=== PATIENT | female | born 1970 | race Caucasian/White ===

== ENCOUNTER → 2016-08-12 | Outpatient (CLI) | payer BC, OTHER ==
[~2016-08-12] MED LIST: ALPR-411 PO; AMPH10TA2 PO; AMPH25CA PO; CEPH500C2 PO; COLD MEDICINE PO; CYTM25 PO; ESCI10TA17 PO; HYDR-5688 PO; IBUP-1050 PO; LXP/20 PO; PHEN-775 PO; PRMVC INT UTER; RMCI IV; SULF800T23 PO
== END | disposition home or self-care (01) ==
LOC: C.LABSPEC 09:18
PROVIDERS: ATTEND Family Medicine
DX: L01.00 Impetigo, unspecified (principal)

== ENCOUNTER → 2016-09-06 | Outpatient (CLI) | payer BC, OTHER | END | disposition home or self-care (01) | LOC: C.LABSPEC 11:41 | PROVIDERS: ATTEND Family Medicine | DX: L30.9 Dermatitis, unspecified (principal) ==

== ENCOUNTER → 2016-11-07 | Outpatient (CLI) | payer BC, OTHER ==
[2016-11-07 09:43] LABS: BASO % 0.7 %; BASO ABS # 0.06 K/uL (0-0.2); COMPLETE YES; EOS % 1.3 %; HEMATOCRIT 41.8 % (37-47); IG% 0.1 %; LYMPH % 15.8 %; LYMPH ABS # 1.35 K/uL (1.2-3.4); MEAN CELL VOLUME 87.4 fL (80-100); MEAN CORPUSCULAR HEMOGLOBIN 29.1 pg (25-34); MEAN CORPUSCULAR HGB CONC 33.3 g/dl (32-36); NEUT % 72.1 %; PLATELET COUNT 368 K/uL (130-400); RED BLOOD COUNT 4.78 M/uL (4.2-5.4); WHITE BLOOD COUNT 8.54 K/uL (4.8-10.8)
== END | disposition home or self-care (01) ==
LOC: C.LAB1850 08:01
PROVIDERS: ATTEND Family Medicine
DX: R23.8 Other skin changes (principal)

== ENCOUNTER → 2016-12-17 | Outpatient (CLI) | payer BC, OTHER ==
--- NOTE | 2016-12-17 12:03 | DIAGNOSTIC IMAGING REPORT ---
LEFT FOOT MIN 3 VIEWS ROUTINE CLINICAL HISTORY: L03.116 Cellulitis of foot, leftPt with ongoing left foot pain s pain. Cellulitis. COMPARISON: None. DISCUSSION: The bones and joint spaces appear intact. There is no evidence of fracture, dislocation or bony disease. Mild soft tissue edema IMPRESSION: Mild soft tissue edema. No acute bony abnormality. The above report was generated using voice recognition software. It may contain grammatical, syntax or spelling errors. Electronically signed by: Justus García M.D. 12/17/2016 12:01 PM Dictated Date/Time: 12/17/2016 12:01 PM
[2016-12-17 13:27] LABS: BASO % 0.6 %; BASO ABS # 0.04 K/uL (0-0.2); COMPLETE YES; EOS % 0.8 %; HEMATOCRIT 40.1 % (37-47); IG% 0.2 %; LYMPH % 20.9 %; LYMPH ABS # 1.29 K/uL (1.2-3.4); MEAN CELL VOLUME 88.5 fL (80-100); MEAN CORPUSCULAR HEMOGLOBIN 29.4 pg (25-34); MEAN CORPUSCULAR HGB CONC 33.2 g/dl (32-36); MONO % 9.7 %; NEUT % 67.8 %; PLATELET COUNT 313 K/uL (130-400); RED BLOOD COUNT 4.53 M/uL (4.2-5.4); WHITE BLOOD COUNT 6.16 K/uL (4.8-10.8)
== END | disposition home or self-care (01) ==
LOC: C.RAD1850 11:46
PROVIDERS: ATTEND Family Medicine
DX: L03.116 Cellulitis of left lower limb (principal)

== ENCOUNTER 2017-01-22 14:47 | Emergency (ER) | payer BC, OTHER ==
[~2017-01-22] VITALS: Ht 162.6 cm; Wt 59.6 kg
[~2017-01-22 14:47] MED LIST changes: -AMPH25CA PO; -CEPH500C2 PO; -COLD MEDICINE PO; -CYTM25 PO; -ESCI10TA17 PO; -HYDR-5688 PO; -IBUP-1050 PO; -LXP/20 PO; -PHEN-775 PO; -PRMVC INT UTER; -SULF800T23 PO
[2017-01-22 14:51] VITALS: TEMP 36.8; Ht 162.6 cm; Wt 59.6 kg
[2017-01-22] MEDS ORDERED: SODIUM CHLORIDE 0.9% 1000ML 1,000 ML IV STA (15:14)
[2017-01-22] MEDS ORDERED: LXP/20 PO (15:30)
[2017-01-22] MEDS ORDERED: CYTM25 PO (15:30)
[2017-01-22] MEDS ORDERED: AMPH25CA PO (15:30)
[2017-01-22] MEDS ORDERED: OPTIRAY 320 IV PRN (15:30)
[2017-01-22] MEDS ORDERED: PRMVC INT UTER (15:30)
[2017-01-22 15:54] LABS: URINE APPEARANCE CLEAR (CLEAR); URINE BILIRUBIN NEG (NEG); URINE COLOR YELLOW; URINE NITRITE NEG (NEG); URINE PH 7.5 (4.5-7.5); URINE SPECIFIC GRAVITY 1.011 (1.000-1.030); UROBILINOGEN NEG (NEG); ZZUR CULT IF INDIC CLEAN CATCH NO
[2017-01-22 15:59] LABS: MANUAL MICROSCOPIC REQUIRED? NO; REVIEW REQ? YES
[2017-01-22 16:31] LABS: BASO % 0.6 %; BASO ABS # 0.05 K/uL (0-0.2); COMPLETE YES; EOS % 0.7 %; HEMATOCRIT 40.5 % (37-47); IG% 0.2 %; LYMPH % 17.7 %; LYMPH ABS # 1.54 K/uL (1.2-3.4); MEAN CELL VOLUME 89.2 fL (80-100); MEAN CORPUSCULAR HEMOGLOBIN 28.2 pg (25-34); MEAN CORPUSCULAR HGB CONC 31.6 g/dl (32-36); MEAN PLATELET VOLUME 9.5 fL (7.4-10.4); MONO % 7.3 %; NEUT % 73.5 %; PLATELET COUNT 278 K/uL (130-400); RED BLOOD COUNT 4.54 M/uL (4.2-5.4); WHITE BLOOD COUNT 8.68 K/uL (4.8-10.8)
[2017-01-22 16:34] LABS: ISTAT CREATININE 0.8 mg/dl (0.6-1.3); ISTAT HEMOGLOBIN 12.9 g/dl (12.0-16.0); ISTAT IONIZED CALCIUM 1.23 mmol/l (1.12-1.32)
--- NOTE | 2017-01-22 16:46 | DIAGNOSTIC IMAGING REPORT ---
CT SCAN OF THE ABDOMEN AND PELVIS WITH IV CONTRAST CLINICAL HISTORY: Left lower quadrant abdominal pain. COMPARISON STUDY: Abdominal ultrasound dated 01/14/2007. TECHNIQUE: Following the IV administration of 92 cc of Optiray 320, CT scan of the abdomen and pelvis is performed from the lung bases to the proximal femora. Images are reviewed in the axial, sagittal, and coronal planes. IV contrast was administered without complication. Automated dose control exposure was utilized. A dose lowering technique was utilized adhering to the principles of ALARA. CT DOSE: 267.29 mGy.cm FINDINGS: Lung bases: The heart is normal in size and without pericardial effusion. The lung bases are clear. Liver: The contrast-enhanced liver is normal in size, contour, and attenuation. There is no intrahepatic biliary ductal dilatation. The hepatic veins and portal veins are patent. Gallbladder: Surgically absent noting clips in the gallbladder fossa. Spleen: Normal in size and attenuation. Pancreas: Unremarkable. Adrenal glands: Unremarkable. Kidneys: The contrast enhanced kidneys are normal in size and without hydronephrosis. The kidneys enhance symmetrically. Scattered subcentimeter cortical hypodensities likely represent cysts but are too small for definitive characterization. Abdominal vasculature: The abdominal aorta is normal in course and caliber. Bowel: There is moderate constipation. No bowel obstruction is seen. The appendix is not identified and reported surgically absent. Peritoneum: There is no intraperitoneal free air or abdominal ascites. Lymphadenopathy: None. Pelvic viscera: The bladder wall is thickened and hyperemic. Mild pericystic inflammation is noted in the appearance suggests cystitis. The uterus is surgically absent. No adnexal lesion is seen. Skeletal structures: No lytic or blastic lesions are seen. IMPRESSION: 1. Findings suggest cystitis. Correlation with clinical findings and urinalysis will be required. 2. Moderate constipation. 3. Status post cholecystectomy, hysterectomy, and appendectomy. Electronically signed by: Greyson Hernandes M.D. 01/22/2017 4:45 PM Dictated Date/Time: 01/22/2017 4:41 PM
[2017-01-22 16:50] LABS: BUN/CREATININE RATIO 28.4 (10-20); CALCIUM 9.2 mg/dl (8.5-10.1); CREATININE 0.72 mg/dl (0.60-1.20); POTASSIUM 3.5 mmol/L (3.5-5.1)
[2017-01-22] MEDS ORDERED: SULFAMETHOXAZOLE/TRIMETHOPRIM DS 800/160MG TAB PO STA (16:52)
[2017-01-22] MEDS ORDERED: ACETAMINOPHEN 500 MG TAB PO STA (16:53)
[2017-01-22] MEDS ORDERED: SULF800T23 PO (16:58)
[2017-01-22 17:00] VITALS: BP 124/81; PULSE 69; O2SAT 97
--- NOTE | 2017-01-22 17:26 | EMERGENCY ROOM VISIT NOTE ---
History Report prepared by Madan: Indira Peacock Under the Supervision of: Dr. Te Ryan D.O. First contact with patient: 15:03 Chief Complaint: HEMATURIA Stated Complaint: BLOOD IN URINE, PAIN, DIZZY History of Present Illness The patient is a 46 year old female who presents to the Emergency Room with complaints of intermittent hematuria beginning this morning. The patient states that she woke up at 4am to go to the bathroom. When she urinated she has some discomfort but did not notice if there was any blood. She went back to sleep and when she woke up again she was experiencing hematuria. She states that she has been passing blood with a large amount of clots. She has been wearing a pad all day because of the bleeding. The patient also reports cramping lower abdominal pain that she rates as a 5/10 in severity. She denies any modifying factors. She has had UTIs and kidney stones in the past and states that these current symptoms feel different. She has a history of endometriosis and states that this pain feels very similar. She has had endometriosis in her bladder before. The patient has had a complete hysterectomy. She is supposed to be getting Remicade treatments for her endometriosis but has not had any for eight months. She denies hematochezia, melena, and vaginal bleeding. She does not take any blood thinners. Source of History: patient Onset: this morning Position: other (bladder) Symptom Intensity: 4/10 Quality: other (hematuria) Timing: intermittent Modifying Factors (Worsening): urination Associated Symptoms: + abdominal pain, No melena, No hematochezia Note: Pt denies vaginal bleeding. Review of Systems See HPI for pertinent positives & negatives. A total of 10 systems reviewed and were otherwise negative. Past Medical & Surgical Medical Problems: (1) Encounter for removal of sutures (2) Hx of cholecystectomy (3) Hysterectomy (4) Insertion of implantable venous access port (5) Port catheter in place (6) Wrist laceration Surgical Problems: (1) History of appendectomy Family History Diabetes mellitus FH: cancer FH: gallbladder disease FH: lung disease Kidney disease Kidney stones Social History Smoking Status: Never Smoker Alcohol Use: none Drug Use: none Housing Status: lives with family Occupation Status: employed Current/Historical Medications Scheduled Amphetamine-Dextroamphetamine 25MG (Adderall Xr 25MG), 25 MG PO DAILY Escitalopram Oxalate (Escitalopram Oxalate), 20 MG PO DAILY Estrogens, Conjugated (Premarin), INT UTER UD Infliximab (Remicade), 1 DOSE IV q 7 weeks Liothyronine Sodium (Liothyronine Sodium), 12.5 MG PO DAILY Sulfamethoxazole-Trimethoprim (Bactrim Ds 800MG/160MG), 1 TAB PO BID Scheduled PRN Alprazolam (Xanax), 0.5 MG PO DAILY PRN for anxiety Allergies Coded Allergies: No Known Allergies (Unverified , 01/14/07) Physical Exam Vital Signs Date Time Temp Pulse Resp B/P (MAP) Pulse Ox O2 Delivery O2 Flow Rate FiO2 01/22/17 17:00 69 16 124/81 97 Room Air 01/22/17 16:28 74 16 114/73 98 Room Air 01/22/17 14:51 36.8 92 20 115/79 97 Room Air Physical Exam GENERAL: alert, sitting up in bed, tearful, disheveled appearing, well nourished , no distress, non-toxic EYE EXAM: normal conjunctiva OROPHARYNX: no exudate, no erythema, lips, buccal mucosa, and tongue normal and mucous membranes are moist NECK: supple, no nuchal rigidity, no adenopathy, non-tender LUNGS: Clear to auscultation. Normal chest wall mechanics HEART: no murmurs, S1 normal and S2 normal ABDOMEN: abdomen soft, non-tender, normo-active bowel sounds, no masses, no rebound or guarding. : Normal external genitalia, normal vaginal mucosa, no obvious lesions or bleeding, no pain. BACK: Back is symmetrical on inspection and there is no deformity, no midline tenderness, no CVA tenderness. SKIN: no rashes and no bruising UPPER EXTREMITIES: upper extremities are grossly normal. LOWER EXTREMITIES: No pitting edema. NEURO EXAM: Normal sensorium, cranial nerves II-XII grossly intact, normal speech, no gross weakness of arms, no gross weakness of legs. Medical Decision & Procedures ER Provider Diagnostic Interpretation: Radiology results as stated below per my review and the radiologist's interpretation: CT SCAN OF THE ABDOMEN AND PELVIS WITH IV CONTRAST CLINICAL HISTORY: Left lower quadrant abdominal pain. COMPARISON STUDY: Abdominal ultrasound dated 01/14/2007. TECHNIQUE: Following the IV administration of 92 cc of Optiray 320, CT scan of the abdomen and pelvis is performed from the lung bases to the proximal femora. Images are reviewed in the axial, sagittal, and coronal planes. IV contrast was administered without complication. Automated dose control exposure was utilized. A dose lowering technique was utilized adhering to the principles of ALARA. CT DOSE: 267.29 mGy.cm FINDINGS: Lung bases: The heart is normal in size and without pericardial effusion. The lung bases are clear. Liver: The contrast-enhanced liver is normal in size, contour, and attenuation. There is no intrahepatic biliary ductal dilatation. The hepatic veins and portal veins are patent. Gallbladder: Surgically absent noting clips in the gallbladder fossa. Spleen: Normal in size and attenuation. Pancreas: Unremarkable. Adrenal glands: Unremarkable. Kidneys: The contrast enhanced kidneys are normal in size and without hydronephrosis. The kidneys enhance symmetrically. Scattered subcentimeter cortical hypodensities likely represent cysts but are too small for definitive characterization. Abdominal vasculature: The abdominal aorta is normal in course and caliber. Bowel: There is moderate constipation. No bowel obstruction is seen. The appendix is not identified and reported surgically absent. Peritoneum: There is no intraperitoneal free air or abdominal ascites. Lymphadenopathy: None. Pelvic viscera: The bladder wall is thickened and hyperemic. Mild pericystic inflammation is noted in the appearance suggests cystitis. The uterus is surgically absent. No adnexal lesion is seen. Skeletal structures: No lytic or blastic lesions are seen. IMPRESSION: 1. Findings suggest cystitis. Correlation with clinical findings and urinalysis will be required. 2. Moderate constipation. 3. Status post cholecystectomy, hysterectomy, and appendectomy. Electronically signed by: Greyson Hernandes M.D. 01/22/2017 4:45 PM Dictated Date/Time: 01/22/2017 4:41 PM Laboratory Results 01/22/17 16:15 Red Blood Count 4.54, Mean Corpuscular Volume 89.2, Mean Corpuscular Hemoglobin 28.2, Mean Corpuscular Hemoglobin Concent 31.6, Mean Platelet Volume 9.5, Neutrophils (%) (Auto) 73.5, Lymphocytes (%) (Auto) 17.7, Monocytes (%) (Auto) 7.3, Eosinophils (%) (Auto) 0.7, Basophils (%) (Auto) 0.6, Neutrophils # (Auto) 6.38, Lymphocytes # (Auto) 1.54, Monocytes # (Auto) 0.63, Eosinophils # (Auto) 0.06, Basophils # (Auto) 0.05 01/22/17 16:15 Test 01/22/17 15:21 01/22/17 16:15 01/22/17 16:22 Urine Color YELLOW Urine Appearance CLEAR (CLEAR) Urine pH 7.5 (4.5-7.5) Urine Specific [place] 1.011 (1.000-1.030) Urine Protein NEG (NEG) Urine Glucose (UA) NEG (NEG) Urine Ketones NEG (NEG) Urine Occult Blood 2+ (NEG) Urine Nitrite NEG (NEG) Urine Bilirubin NEG (NEG) Urine Urobilinogen NEG (NEG) Urine Leukocyte Esterase SMALL (NEG) Urine WBC (Auto) 5-10 /hpf (0-5) Urine RBC (Auto) 10-30 /hpf (0-4) Urine Hyaline Casts (Auto) 0 /lpf (0-5) Urine Epithelial Cells (Auto) 10-20 /lpf (0-5) Urine Bacteria (Auto) NEG (NEG) Urine Test NEG (NEG) White Blood Count 8.68 K/uL (4.8-10.8) Red Blood Count 4.54 M/uL (4.2-5.4) Hemoglobin 12.8 g/dL (12.0-16.0) Hematocrit 40.5 % (37-47) Mean Corpuscular Volume 89.2 fL (80-100) Mean Corpuscular Hemoglobin 28.2 pg (25-34) Mean Corpuscular Hemoglobin Concent 31.6 g/dl (32-36) Platelet Count 278 K/uL (130-400) Mean Platelet Volume 9.5 fL (7.4-10.4) Neutrophils (%) (Auto) 73.5 % Lymphocytes (%) (Auto) 17.7 % Monocytes (%) (Auto) 7.3 % Eosinophils (%) (Auto) 0.7 % Basophils (%) (Auto) 0.6 % Neutrophils # (Auto) 6.38 K/uL (1.4-6.5) Lymphocytes # (Auto) 1.54 K/uL (1.2-3.4) Monocytes # (Auto) 0.63 K/uL (0.11-0.59) Eosinophils # (Auto) 0.06 K/uL (0-0.5) Basophils # (Auto) 0.05 K/uL (0-0.2) RDW Standard Deviation 45.4 fL (36.4-46.3) RDW Coefficient of Variation 13.8 % (11.5-14.5) Immature Granulocyte % (Auto) 0.2 % Immature Granulocyte # (Auto) 0.02 K/uL (0.00-0.02) Est Creatinine Clear Calc Drug Dose 85.3 ml/min Estimated GFR () 117.2 Estimated GFR (Non- 101.1 BUN/Creatinine Ratio 28.4 (10-20) Calcium Level 9.2 mg/dl (8.5-10.1) Total Bilirubin 0.5 mg/dl (0.2-1) Direct Bilirubin 0.1 mg/dl (0-0.2) Aspartate Amino Transf (AST/SGOT) 15 U/L (15-37) Alanine Aminotransferase (ALT/SGPT) 22 U/L (12-78) Alkaline Phosphatase 58 U/L (45-117) Total Protein 6.9 gm/dl (6.4-8.2) Albumin 3.5 gm/dl (3.4-5.0) Lipase 96 U/L (73-393) Bedside Hemoglobin 12.9 g/dl (12.0-16.0) Bedside Hematocrit 38 % (37-47) Bedside Sodium 140 mEq/L (135-144) Bedside Potassium 3.5 mEq/L (3.3-5.0) Bedside Chloride 103 mEq/L (101-112) Bedside Total CO2 27 mEq/l (24-31) Anion Gap 15.0 mmol/L (16-25) Bedside Blood Urea Nitrogen 21 mg/dl (7-18) Bedside Creatinine 0.8 mg/dl (0.6-1.3) Bedside Glucose (other) 81 mg/dl (70-99) Bedside Ionized Calcium ([place]) 1.23 mmol/l (1.12-1.32) Laboratory results per my review. Medications Administered Medications (Trade) Dose Ordered Sig/[place] Route Start Time Stop Time Status Last Admin Dose Admin Sodium Chloride 1,000 ml @ 999 mls/hr Q1H1M STAT IV 01/22/17 15:14 01/22/17 16:14 DC 01/22/17 16:27 999 MLS/HR Trimethoprim/ Sulfamethoxazole (Septra Ds 800/ 160MG Tab) 1 tab NOW STAT PO 01/22/17 16:52 01/22/17 16:54 DC 01/22/17 17:00 1 TAB Acetaminophen (Tylenol Tab) 1,000 mg NOW STAT PO 01/22/17 16:53 01/22/17 16:54 DC 01/22/17 17:00 1,000 MG Heparin Sodium (Porcine) (Heparin 100 Unit/ml 5ml Flush) 5 ml STK-MED ONCE .ROUTE 01/22/17 17:04 01/22/17 17:05 DC 01/22/17 17:12 5 ML ED Course ED COURSE: Vital signs were reviewed and showed normal vitals. The patients medical record was reviewed The above diagnostic studies were performed and reviewed. ED treatments and interventions as stated above. 1505: The patient was evaluated in room C12B. A complete history and physical examination was performed. 1514: NSS 1000 ml @ 999 mls/hr IV 1644: At this time I performed a pelvic examination. Please see above for my findings. 1652: Trimethoprim/Sulfamethoxazole 1 tab PO 1653: tylenol tab 1000 mg PO 1658: Upon reevaluation, the patient is feeling better and resting comfortably. I discussed my findings with the patient and she understands and agrees with the treatment plan. Based on the patients age, coexisting illnesses, exam and lab findings the decision to treat as an outpatient was made. The patient remained stable while under my care. The patient appeared well at the time of discharge. Medical Decision Differential diagnoses includes but is not limited to appendicitis, diverticulitis, small bowel obstruction, malignancy, hernia, urinary tract infection, torsion, perforation, trauma, infectious. Patient is a 46-year-old female who presents the ER for hematuria. She denies any abdominal pain but does admit to urinary urgency. CBC along with BMP, LFTs , bilirubin and lipase is unremarkable. UA shows esterase and white cells along with 10-20 epithelial cells. was negative. I do feel this was likely a contaminant but based on the CT findings which suggest a cystitis she is treated with Bactrim. She was given fluids. She felt significantly better. Pelvic was unremarkable. Patient was updated bedside discharged follow-up with PCP. Discussed with Pt concerning signs and symptoms to watch out for. Pt was instructed to follow up with their PCP and discussed with the patient their option to return to the ED at anytime for persistent or worsening symptoms. The appropriate anticipatory guidance and out-patient management, including indications for return to the emergency department, were explained at length to the patient and understood. Medication Reconcilliation Current Medication List: was personally reviewed by me Blood Pressure Screening Patient's blood pressure: Normal blood pressure Impression Primary Impression: UTI (urinary tract infection) Additional Impression: Hematuria Scribe Attestation The scribe's documentation has been prepared under my direction and personally reviewed by me in its entirety. I confirm that the note above accurately reflects all work, treatment, procedures, and medical decision making performed by me. Departure Information Dispostion Home / Self-Care Prescriptions Sulfamethoxazole-Trimethoprim (Bactrim Ds 800MG/160MG) 1 Tab Tab 1 TAB PO BID, #20 TAB Prov: Te Ryan, DO 01/22/17 Referrals Erin Tejeda MD (PCP) Wai Felton M.D. Forms HOME CARE DOCUMENTATION FORM, IMPORTANT VISIT INFORMATION, WORK / SCHOOL INSTRUCTIONS Patient Instructions ED UTI Cystitis Female, Hematuria Poss Causes, My [facility] Additional Instructions Please follow up with your primary care doctor with in the next 24 hours. Any worsening of your symptoms, please return to the ED immediately. This includes any fevers greater than 100.4, worsening pain, chest pain, shortness breath, persistent nausea, vomiting, unable to eat or drink, increased blood in urine, unable to void, or any other concerning signs or symptoms from your standpoint. Problem Qualifiers Primary Impression: UTI (urinary tract infection) Urinary tract infection type: site unspecified Hematuria presence: with hematuria Qualified Codes: N39.0 - Urinary tract infection, site not specified ; R31.9 - Hematuria, unspecified Additional Impression: Hematuria Hematuria type: unspecified type Qualified Codes: R31.9 - Hematuria, unspecified
[2017-02-13] MEDS ORDERED: ESCI10TA17 PO (13:57)
[2017-02-13] MEDS ORDERED: COLD MEDICINE PO (13:58)
[2017-02-13] MEDS ORDERED: IBUP-1050 PO (13:58)
[2017-02-25] MEDS ORDERED: CEPH500C2 PO (08:08)
[2017-02-25] MEDS ORDERED: HYDR-5688 PO (08:08)
[2017-02-25] MEDS ORDERED: PHEN-775 PO (08:08)
== END 2017-01-22 17:13 | disposition home or self-care (01) ==
LOC: C.EDB 14:48 → C.EDC 17:13
DX: R31.9 Hematuria, unspecified (principal); N39.0 Urinary tract infection, site not specified; Z90.49 Acquired absence of other specified parts of digestive tract; Z90.710 Acquired absence of both cervix and uterus

== ENCOUNTER → 2017-02-05 | Outpatient (CLI) | payer BC, OTHER ==
[~2017-02-05] MED LIST changes: -AMPH10TA2 PO; +AMPH25CA PO; +CEPH500C2 PO; +COLD MEDICINE PO; +CYTM25 PO; +ESCI10TA17 PO; +HYDR-5688 PO; +IBUP-1050 PO; +LXP/20 PO; +PHEN-775 PO; +PRMVC INT UTER
== END | disposition home or self-care (01) ==
LOC: C.PATHSPEC 17:03
PROVIDERS: ATTEND Urology
DX: R31.0 Gross hematuria (principal)

== ENCOUNTER 2017-02-25 05:07 | Day surgery (SDC) | payer BC, OTHER ==
[2017-02-13 13:59] VITALS: BMI 22.0
--- NOTE | 2017-02-13 14:38 | PAT Medication Instructions ---
Service Date Feb 13, 2017. Current Home Medication List Alprazolam (Xanax), 0.5 MG PO DAILY PRN for anxiety Amphetamine-Dextroamphetamine 25MG (Adderall Xr 25MG), 25 MG PO QAM Escitalopram (Lexapro), 10 MG PO QAM Estrogens, Conjugated (Premarin), INT UTER UD Ibuprofen (Advil), 600 MG PO PRN Infliximab (Remicade), 1 DOSE IV q 7 weeks Liothyronine Sodium (Liothyronine Sodium), 12.5 MG PO QAM [Cold Medicine], 1 DOSE PO PRN Medication Instructions For Your Scheduled Surgery - Check with surgeon/prescribing physician for instructions: Infliximab (Remicade), 1 DOSE IV q 7 weeks - Check with surgeon for instructions: Ibuprofen (Advil), 600 MG PO PRN Estrogens, Conjugated (Premarin), INT UTER UD - Hold the following medications the morning of surgery: Amphetamine-Dextroamphetamine 25MG (Adderall Xr 25MG), 25 MG PO QAM [Cold Medicine], 1 DOSE PO PRN - Take the following medications the morning of surgery with a sip of water: Alprazolam (Xanax), 0.5 MG PO DAILY PRN for anxiety (if needed) Escitalopram (Lexapro), 10 MG PO QAM Liothyronine Sodium (Liothyronine Sodium), 12.5 MG PO QAM - Take the following medications as scheduled the night before surgery: [Cold Medicine], 1 DOSE PO PRN Alprazolam (Xanax), 0.5 MG PO DAILY PRN for anxiety (if needed) If you have any questions please call us at [phone] or [phone] or [phone]
--- NOTE | 2017-02-13 15:01 | DIAGNOSTIC IMAGING REPORT ---
CHEST PREADMISSION(PA/LAT) HISTORY: Preop. COMPARISON: Chest 10/13/2012. FINDINGS: The lungs are clear. Cardiac silhouette is normal in size. No pleural effusions. No pneumothorax. Right jugular Port-A-Cath terminates in the SVC. IMPRESSION: No acute process. Electronically signed by: Agustin Miguel M.D. 02/13/2017 3:00 PM Dictated Date/Time: 02/13/2017 2:57 PM
[2017-02-13 15:25] LABS: BASO ABS # 0.06 K/uL (0-0.2); COMPLETE YES; EOS % 1.3 %; HEMATOCRIT 41.3 % (37-47); IG% 0.2 %; LYMPH % 24.8 %; LYMPH ABS # 1.49 K/uL (1.2-3.4); MEAN CELL VOLUME 87.5 fL (80-100); MEAN CORPUSCULAR HEMOGLOBIN 29.7 pg (25-34); MEAN CORPUSCULAR HGB CONC 33.9 g/dl (32-36); MEAN PLATELET VOLUME 9.8 fL (7.4-10.4); MONO % 7.6 %; NEUT % 65.1 %; PLATELET COUNT 282 K/uL (130-400); RED BLOOD COUNT 4.72 M/uL (4.2-5.4); WHITE BLOOD COUNT 6.02 K/uL (4.8-10.8)
[2017-02-13 15:25] LABS: URINE APPEARANCE CLEAR (CLEAR); URINE BILIRUBIN NEG (NEG); URINE COLOR YELLOW; URINE NITRITE NEG (NEG); URINE PH 6.5 (4.5-7.5); URINE SPECIFIC GRAVITY 1.013 (1.000-1.030); UROBILINOGEN NEG (NEG)
[2017-02-13 15:29] LABS: MANUAL MICROSCOPIC REQUIRED? NO; REVIEW REQ? NO
[2017-02-13 15:33] LABS: BUN/CREATININE RATIO 20.2 (10-20); CALCIUM 9.6 mg/dl (8.5-10.1); CREATININE 0.82 mg/dl (0.60-1.20); POTASSIUM 3.7 mmol/L (3.5-5.1)
[~2017-02-25] VITALS: Ht 162.6 cm; Wt 59.6 kg
[~2017-02-25 05:07] MED LIST changes: -CEPH500C2 PO; -HYDR-5688 PO; -LXP/20 PO; -PHEN-775 PO
[2017-02-25 05:46] VITALS: BP 111/64; PULSE 65; TEMP 36.6; O2SAT 98; Ht 162.6 cm; Wt 59.6 kg
[2017-02-25] MEDS ORDERED: LACTATED RINGER'S 1000ML 1,000 ML IV SCH (06:00)
[2017-02-25] MEDS ORDERED: CEFAZOLIN 2000 MG/60 ML D5W IV SCH (06:00)
[2017-02-25] MEDS ORDERED: DEXAMETHASONE SOD INJ 4 MG/ML VIAL ONE ×2 (06:26→07:32)
[2017-02-25] MEDS ORDERED: PROPOFOL IV EMULSION 10 MG/ML 20 ML VIAL IV ONE (06:26)
[2017-02-25] MEDS ORDERED: MIDAZOLAM HCL 1 MG/ML 2ML VIAL ONE (06:26)
[2017-02-25] MEDS ORDERED: FENTANYL CITRATE INJ 50 MCG/1 ML 2 ML VIAL ONE (06:26)
[2017-02-25] MEDS ORDERED: LIDOCAINE HCL 2% 2 ML VIAL (20MG/ML) ONE (06:26)
[2017-02-25] MEDS ORDERED: ONDANSETRON INJ 2 MG/ML 2 ML VIAL ONE (06:26)
[2017-02-25] MEDS ORDERED: SCOPOLAMINE 1.5 MG TDSY TD ONE (06:54)
[2017-02-25] MEDS ORDERED: CONRAY 30% 150ML BOTTLE ONE (06:58)
--- NOTE | 2017-02-25 07:20 | History & Physical Bridge Note ---
H&P Re-Evaluation Bridge Note: I have examined the patient, reviewed the History & Physical and in the interval since the performance of the History & Physical I have noted the following changes of clinical significance: No changes noted
[2017-02-25] MEDS ORDERED: KETOROLAC TROMETHAMINE 30 MG/ML VIAL ONE (07:41)
[2017-02-25] MEDS ORDERED: ONDANSETRON INJ 2 MG/ML 2 ML VIAL IV PRN (07:45)
[2017-02-25] MEDS ORDERED: EpHEDrine SULFATE INJ 50 MG/ML AMP IV PRN (07:45)
[2017-02-25] MEDS ORDERED: FENTANYL CITRATE INJ 50 MCG/1 ML 2 ML VIAL IV PRN (07:45)
[2017-02-25] MEDS ORDERED: ATROPINE SULFATE 0.1 MG/ML 5ML SYR IV PRN (07:45)
--- NOTE | 2017-02-25 08:05 | [facility] Operative Report ---
Operative Report Operative Date Feb 25, 2017. Pre-Operative Diagnosis gross hematuria; bladder abnormality Post-Operative Diagnosis gross hematuria; bladder abnormality Procedure(s) Performed cystoscopy; bilateral retrograde pyelogram; cook catheter placement Surgeon Dr. Roman Home Extension Agent Surgeon(s) none Estimated Blood Loss 0mL Findings No obstruction or filling defect on bilateral retrograde pyelogram. No issues on drainage film. No masses, lesions, or areas of concern within bladder or urethra. Specimens none per surgeon Drains 16 Fr Cook Anesthesia General Complication(s) None Disposition Recovery Room / PACU Indications Gross Hematuria and questionable bladder abnormality on CT imaging. Description of Procedure Patient was consented and brought back to the operating room. Patient was placed under anesthesia in the supine position. Patient was prepped and draped in the regular sterile fashion. A time out was completed. A 30degree Cystoscope was placed into the bladder and the entire bladder was examined. The UO's were identified. First the left and then the right UO was cannulized with a catheter and a retrograde pyelogram was completed. The entire bladder was examined. No Masses or lesions or areas of concern were identified. The bladder was left full and the scope removed. A vaginal exam was completed. Mild cystocele grade 1 with no other abnormalities. The scope was replaced and the bladder was partially emptied. The scope was removed and a 16 Fr cook catheter was placed. The patient was cleaned, aroused from anesthesia, and transferred to the pacu in stable condition having tolerated the procedure well with no complications. I was present and participated in all aspects of the procedure. The patient will be monitored in the PACU until transferred. I attest to the content of the Intraoperative Record and any orders documented therein. Any exceptions are noted below.
[2017-02-25] MEDS ORDERED: CEPH500C2 PO (08:08)
[2017-02-25] MEDS ORDERED: HYDR-5688 PO (08:08)
[2017-02-25] MEDS ORDERED: PHEN-775 PO (08:08)
--- NOTE | 2017-02-25 08:08 | DIAGNOSTIC IMAGING REPORT ---
RETROGRADE INCLUDES KUB CLINICAL HISTORY: B/L CYSTO hematuria TECHNIQUE: Image intensifier. COMPARISON STUDY: CT abdomen and pelvis 01/22/2017 FINDINGS: Retrograde opacification of the right as well as left urinary tracts. No filling defect. Calyceal systems are unremarkable. IMPRESSION: Normal retrograde pyelogram. The above report was generated using voice recognition software. It may contain grammatical, syntax or spelling errors. Electronically signed by: Justus García M.D. 02/25/2017 8:07 AM Dictated Date/Time: 02/25/2017 8:05 AM
--- NOTE | 2017-02-25 08:11 | Discharge Instructions ---
Discharge Instructions Date of Service Feb 25, 2017. Admission Reason for Admission: Gross Hematuria Discharge Discharge Diagnosis / Problem: Hematuria, Bladder Abnormality Discharge Goals Goal(s): Decrease discomfort, Improve function Activity Recommendations Activity Limitations: resume your previous activity . Instructions / Follow-Up Instructions / Follow-Up May have blood in urine and pelvic discomfort. Maintain catheter with cook care instructions via nursing. Call with any fever or questions. Plan to remove catheter later this week. Current Hospital Diet Hospital Diet(s): Regular Diet Discharge Diet Recommended Diet: Regular Diet Procedures Procedures Performed: cystoscopy; bilateral retrograde pyelogram; cook catheter placement Pending Studies Studies pending at discharge: no Medical Emergencies . Who to Call and When: Medical Emergencies: If at any time you feel your situation is an emergency, please call 911 immediately. . Non-Emergent Contact Non-Emergency issues call your: Primary Care Provider, Urologist Call Non-Emergent contact if: you have a fever, temperature is above 101, temperature is above 101.5, your pain is not controlled . . "Provider Documentation" section prepared by Seferino Roman,. . VTE Core Measure Inpt VTE Proph given/why not?: Danay Leger, ARACELI's
[2017-02-25] MEDS ORDERED: HYDROCODONE/ACETAMOPHEN 5/325MG TAB PO PRN (08:15)
--- NOTE | 2017-02-25 09:28 | Anesthesiology Progress Note ---
Anesthesia Post Op Note Date & Time Feb 25, 2017 at 09:28 Vital Signs Pain Intensity: 0 Vital Signs Past 12 Hours Date Time Temp Pulse Resp B/P (MAP) Pulse Ox O2 Delivery O2 Flow Rate FiO2 02/25/17 08:58 36.6 72 16 114/63 100 Room Air 02/25/17 08:45 36.5 57 15 106/67 97 Room Air 02/25/17 08:30 77 17 116/78 99 Room Air 02/25/17 08:20 83 17 102/73 100 Room Air 02/25/17 08:10 79 16 121/81 100 Nasal Cannula 4 02/25/17 08:05 86 18 123/77 100 Oxymask 10 02/25/17 07:59 36.5 78 20 116/75 100 Oxymask 10 02/25/17 05:46 36.6 65 18 111/64 (80) 98 Room Air Notes Mental Status: alert / awake / arousable, participated in evaluation Pt Amnestic to Procedure: Yes Nausea / Vomiting: adequately controlled Pain: adequately controlled Airway Patency, RR, SpO2: stable & adequate BP & HR: stable & adequate Hydration State: stable & adequate Anesthetic Complications: no major complications apparent
[2017-02-25 10:00] VITALS: BP 128/58; PULSE 74; TEMP 36.7; O2SAT 98
== END 2017-02-25 10:16 | disposition home or self-care (01) ==
LOC: C.ACU 05:07
PROVIDERS: ATTEND Urology
DX: R31.0 Gross hematuria (principal); F41.9 Anxiety disorder, unspecified; F32.9 Major depressive disorder, single episode, unspecified; Z79.899 Other long term (current) drug therapy

== ENCOUNTER → 2017-03-28 | Outpatient (CLI) | payer BC, OTHER ==
[~2017-03-28] MED LIST changes: +CEPH500C2 PO
[2017-03-28 12:06] LABS: BASO % 0.5 %; BASO ABS # 0.03 K/uL (0-0.2); COMPLETE YES; EOS % 1.1 %; HEMATOCRIT 41.3 % (37-47); IG% 0.2 %; LYMPH ABS # 1.32 K/uL (1.2-3.4); MEAN CELL VOLUME 87.5 fL (80-100); MEAN CORPUSCULAR HGB CONC 33.2 g/dl (32-36); MONO % 8.7 %; NEUT % 65.5 %; PLATELET COUNT 281 K/uL (130-400); RED BLOOD COUNT 4.72 M/uL (4.2-5.4)
[2017-03-28 13:36] LABS: ALT/SGPT 23 U/L (12-78); AST/SGOT 17 U/L (15-37); CREATININE 0.82 mg/dl (0.60-1.20)
[2017-03-28 13:39] LABS: ALKALINE PHOSPHATASE 60 U/L (45-117)
== END | disposition home or self-care (01) ==
LOC: C.LAB1850 10:33
PROVIDERS: ATTEND Internal Medicine Rheumatology
DX: Z51.81 Encounter for therapeutic drug level monitoring (principal); Z79.899 Other long term (current) drug therapy; L40.50 Arthropathic psoriasis, unspecified

== ENCOUNTER → 2017-09-23 | Outpatient (CLI) | payer BC, OTHER ==
[~2017-09-23] MED LIST changes: -CEPH500C2 PO
[2017-09-23 17:51] LABS: ALT/SGPT 22 U/L (12-78); AST/SGOT 14 U/L (15-37); CREATININE 0.85 mg/dl (0.60-1.20)
[2017-09-23 17:54] LABS: ALKALINE PHOSPHATASE 67 U/L (45-117); TOTAL PROTEIN 7.7 gm/dl (6.4-8.2)
[2017-09-23 18:30] LABS: BASO ABS # 0.05 K/uL (0-0.2); EOS % 2.5 %; EOS ABS # 0.13 K/uL (0-0.5); HEMATOCRIT 40.4 % (37-47); HEMOGLOBIN 13.9 g/dL (12.0-16.0); IG# 0.01 K/uL (0.00-0.02); LYMPH % 34.9 %; LYMPH ABS # 1.81 K/uL (1.2-3.4); MEAN CELL VOLUME 87.6 fL (80-100); MEAN CORPUSCULAR HEMOGLOBIN 30.2 pg (25-34); MEAN CORPUSCULAR HGB CONC 34.4 g/dl (32-36); MEAN PLATELET VOLUME 10.4 fL (7.4-10.4); MONO % 9.1 %; MONO ABS # 0.47 K/uL (0.11-0.59); NEUT % 52.3 %; NEUT ABS # 2.72 K/uL (1.4-6.5); PLATELET COUNT 291 K/uL (130-400); RED CELL DISTRIBUTION WIDTH CV 13.5 % (11.5-14.5); RED CELL DISTRIBUTION WIDTH SD 43.3 fL (36.4-46.3); WHITE BLOOD COUNT 5.19 K/uL (4.8-10.8)
== END | disposition home or self-care (01) ==
LOC: C.LAB1850 16:42
PROVIDERS: ATTEND Internal Medicine Rheumatology
DX: L40.50 Arthropathic psoriasis, unspecified (principal); R05 Cough; Z79.899 Other long term (current) drug therapy

== ENCOUNTER → 2017-12-30 | Outpatient (CLI) | payer BC, OTHER ==
[2017-12-30 13:29] LABS: BASO % 0.7 %; BASO ABS # 0.04 K/uL (0-0.2); EOS % 1.3 %; EOS ABS # 0.07 K/uL (0-0.5); HEMATOCRIT 42.4 % (37-47); HEMOGLOBIN 14.4 g/dL (12.0-16.0); IG# 0.01 K/uL (0.00-0.02); LYMPH % 32.2 %; LYMPH ABS # 1.78 K/uL (1.2-3.4); MEAN CELL VOLUME 88.5 fL (80-100); MEAN CORPUSCULAR HEMOGLOBIN 30.1 pg (25-34); MEAN PLATELET VOLUME 10.5 fL (7.4-10.4); MONO % 6.9 %; MONO ABS # 0.38 K/uL (0.11-0.59); NEUT % 58.7 %; NEUT ABS # 3.24 K/uL (1.4-6.5); PLATELET COUNT 311 K/uL (130-400); RED CELL DISTRIBUTION WIDTH CV 13.8 % (11.5-14.5); RED CELL DISTRIBUTION WIDTH SD 44.7 fL (36.4-46.3); WHITE BLOOD COUNT 5.52 K/uL (4.8-10.8)
[2017-12-30 13:40] LABS: ALBUMIN 4.1 gm/dl (3.4-5.0); ALKALINE PHOSPHATASE 54 U/L (45-117); ALT/SGPT 25 U/L (12-78); AST/SGOT 21 U/L (15-37); CREATININE 0.85 mg/dl (0.60-1.20); TOTAL PROTEIN 7.7 gm/dl (6.4-8.2)
== END | disposition home or self-care (01) ==
LOC: C.LAB1850 12:12
PROVIDERS: ATTEND Internal Medicine Rheumatology
DX: L40.50 Arthropathic psoriasis, unspecified (principal); Z79.899 Other long term (current) drug therapy